=== PATIENT | male | born 2000 | race Caucasian/White ===

== ENCOUNTER 2023-05-11 22:23 | Emergency (ER) | payer OTHER ==
[~2023-05-11] VITALS: Ht 180.3 cm; Wt 83.2 kg
[2023-05-11 22:30] VITALS: TEMP 96.8; O2SAT 96
[2023-05-11] MEDS ORDERED: NS 1,000 ML IV SCH (22:30)
[2023-05-11] MEDS ORDERED: ONDANSETRON 4MG 2ML VIAL IV ONE (22:30)
[2023-05-11 22:53] VITALS: BP 112/73
[2023-05-11 23:03] LABS: BASO % 0.2 % (0.0-1.0); HEMATOCRIT 42.8 % (42.0-52.0); HEMOGLOBIN 14.1 g/dl (13.5-17.5); LYMPH # 1.2 10^3/uL (1.5-5.0); LYMPH % 9.6 % (24.0-44.0); MEAN CORPUSCULAR HEMOGLOBIN 28.9 pg (27.0-33.0); MEAN CORPUSCULAR HGB CONC 32.9 g/dl (32.0-36.5); MEAN CORPUSCULAR VOLUME 87.7 fl (80.0-96.0); MONO # 0.4 10^3/uL (0.0-0.8); MONO % 3.3 % (2.0-8.0); NEUTROPHILS # 10.9 10^3/uL (1.5-8.5); NEUTROPHILS % 86.4 % (36.0-66.0); PLATELET COUNT, AUTOMATED 192 10^3/uL (150-450); RED BLOOD COUNT 4.88 10^6/uL (4.30-6.10); WHITE BLOOD COUNT 12.6 10^3/uL (4.0-10.0)
[2023-05-11 23:29] LABS: ETHYL ALCOHOL (ETHANOL) 0.262 % (0.000-0.010)
[2023-05-11 23:31] LABS: ACETAMINOPHEN LEVEL < 2.0 UG/ML (10.0-20.0); ALBUMIN 4.3 G/DL (3.2-5.2); ALKALINE PHOSPHATASE 88 U/L (46-116); ALT/SGPT 82 U/L (7.0-40); AST/SGOT 96 U/L (<34); BILIRUBIN,DIRECT < 0.1 MG/DL (<0.4); BILIRUBIN,TOTAL 0.3 MG/DL (0.3-1.2); BLOOD UREA NITROGEN 21 MG/DL (9-23); CALCIUM LEVEL 8.4 MG/DL (8.5-10.1); CARBON DIOXIDE LEVEL 27 MMOL/L (20-31); CHLORIDE LEVEL 105 MMOL/L (98-107); GLOMERULAR FILTRATION RATE > 60.0 (>60); GLUCOSE, FASTING 124 MG/DL (60-100); POTASSIUM SERUM 4.6 MMOL/L (3.5-5.1); SALICYLATE LEVEL < 3.0 MG/DL (<30); SODIUM LEVEL 142 MMOL/L (136-145); TOTAL PROTEIN 7.4 G/DL (5.7-8.2)
[2023-05-11 23:33] LABS: RSV AMPLIFICATION NEGATIVE (NEGATIVE); THYROID STIMULATING HORMONE 2.322 uIU/ML (0.55-4.78)
[2023-05-11 23:46] LABS: CPK CREATINE PHOSPHOKINASE 793 U/L (46-171)
== END 2023-05-12 05:25 | disposition home or self-care (01) ==
LOC: M ED 22:23 → EDBD 22:23 → M ED 05-12 05:25
DX: F10.129 Alcohol abuse with intoxication, unspecified (principal); S00.03XA Contusion of scalp, initial encounter
CPT/HCPCS: 70450; 72125; 80048; 80076; 80143; 82077; 82550; 84443; 85025; 87631; 93005; 93041; 94760; 96374; 99285; J2405

== ENCOUNTER 2024-07-05 11:00 | Emergency (ER) | payer OTHER ==
[~2024-07-05] VITALS: Ht 180.3 cm; Wt 90.0 kg
[2024-07-05 11:31] LABS: HEMATOCRIT 45.8 % (42.0-52.0); HEMOGLOBIN 15.7 g/dl (13.5-17.5); MEAN CORPUSCULAR HEMOGLOBIN 29.6 pg (27.0-33.0); MEAN CORPUSCULAR HGB CONC 34.3 g/dl (32.0-36.5); MEAN CORPUSCULAR VOLUME 86.3 fl (80.0-96.0); PLATELET COUNT, AUTOMATED 214 10^3/uL (150-450); RED BLOOD COUNT 5.31 10^6/uL (4.30-6.10); WHITE BLOOD COUNT 5.7 10^3/uL (4.0-10.0)
[2024-07-05] MEDS ORDERED: LORazepam 2 MG TAB PO PRN (11:55)
[2024-07-05 12:00] LABS: ETHYL ALCOHOL (ETHANOL) 0.221 % (0.000-0.010)
[2024-07-05 12:01] LABS: AMPHETAMINES LEVEL URINE NEGATIVE (NEGATIVE); BARBITURATES URINE NEGATIVE (NEGATIVE); BENZODIAZEPINES URINE NEGATIVE (NEGATIVE); CANNABINOIDS URINE NEGATIVE (NEGATIVE); COCAINE METABOLITE URINE NEGATIVE (NEGATIVE); METHADONE URINE NEGATIVE (NEGATIVE); OPIATES URINE NEGATIVE (NEGATIVE); PHENCYCLIDINE URINE NEGATIVE (NEGATIVE); SALICYLATE LEVEL < 3.0 MG/DL (<30)
[2024-07-05 12:02] LABS: ALBUMIN 4.4 G/DL (3.2-5.2); ALKALINE PHOSPHATASE 111 U/L (46-116); ALT/SGPT 102 U/L (7.0-40); AST/SGOT 45 U/L (<34); BILIRUBIN,DIRECT 0.1 MG/DL (<0.4); BILIRUBIN,TOTAL 0.3 MG/DL (0.3-1.2); BLOOD UREA NITROGEN 17 MG/DL (9-23); CALCIUM LEVEL 9.3 MG/DL (8.5-10.1); CARBON DIOXIDE LEVEL 27 MMOL/L (20-31); CHLORIDE LEVEL 106 MMOL/L (98-107); GLOMERULAR FILTRATION RATE > 60.0 (>60); GLUCOSE, FASTING 90 MG/DL (60-100); POTASSIUM SERUM 4.1 MMOL/L (3.5-5.1); SODIUM LEVEL 137 MMOL/L (136-145); TOTAL PROTEIN 7.7 G/DL (5.7-8.2)
[2024-07-05 12:04] LABS: THYROID STIMULATING HORMONE 1.129 uIU/ML (0.55-4.78)
[2024-07-05] MEDS: THIAMINE 100 MG TAB PO SCH (12:09)
[2024-07-05] MEDS: FOLIC ACID 1MG TAB PO SCH (12:10)
[2024-07-05] MEDS: MULTIVITAMINS/MINERALS THERAP 1 TAB PO SCH (12:10)
[2024-07-05] MEDS ORDERED: HOME MED LIST COMPLETE! XX SCH (18:10)
[2024-07-05 18:59] VITALS: BP 136/86; TEMP 98.4; O2SAT 98
== END 2024-07-05 19:52 | disposition home or self-care (01) ==
LOC: M ED 11:00
DX: F10.129 Alcohol abuse with intoxication, unspecified (principal); F43.21 Adjustment disorder with depressed mood

== ENCOUNTER 2024-12-19 20:39 | Inpatient (IN) | payer OTHER ==
[~2024-12-19] VITALS: Ht 175.3 cm; Wt 94.5 kg
[2024-12-19 21:15] LABS: HEMATOCRIT 42.1 % (42.0-52.0); HEMOGLOBIN 14.6 g/dl (13.5-17.5); MEAN CORPUSCULAR HEMOGLOBIN 29.3 pg (27.0-33.0); MEAN CORPUSCULAR HGB CONC 34.7 g/dl (32.0-36.5); MEAN CORPUSCULAR VOLUME 84.4 fl (80.0-96.0); PLATELET COUNT, AUTOMATED 195 10^3/uL (150-450); RED BLOOD COUNT 4.99 10^6/uL (4.30-6.10); WHITE BLOOD COUNT 8.4 10^3/uL (4.0-10.0)
[2024-12-19 21:44] LABS: AMPHETAMINES LEVEL URINE NEGATIVE (NEGATIVE); BARBITURATES URINE NEGATIVE (NEGATIVE); BENZODIAZEPINES URINE NEGATIVE (NEGATIVE); COCAINE METABOLITE URINE NEGATIVE (NEGATIVE); METHADONE URINE NEGATIVE (NEGATIVE); OPIATES URINE NEGATIVE (NEGATIVE); PHENCYCLIDINE URINE NEGATIVE (NEGATIVE)
[2024-12-19 21:45] LABS: CANNABINOIDS URINE POSITIVE (NEGATIVE)
[2024-12-19 21:46] LABS: ETHYL ALCOHOL (ETHANOL) < 0.003 % (0.000-0.010)
[2024-12-19 21:48] LABS: SALICYLATE LEVEL < 3.0 MG/DL (<30)
[2024-12-19 21:50] LABS: THYROID STIMULATING HORMONE 1.415 uIU/ML (0.55-4.78)
[2024-12-19 22:12] LABS: ALBUMIN 4.4 G/DL (3.2-5.2); ALKALINE PHOSPHATASE 81 U/L (40-129); ALT/SGPT 45 U/L (7.0-40); AST/SGOT 29 U/L (<34); BILIRUBIN,DIRECT 0.2 MG/DL (<0.4); BILIRUBIN,TOTAL 0.6 MG/DL (0.3-1.2); BLOOD UREA NITROGEN 21 MG/DL (9-23); CALCIUM LEVEL 9.3 MG/DL (8.5-10.1); CARBON DIOXIDE LEVEL 25 MMOL/L (20-31); CHLORIDE LEVEL 104 MMOL/L (98-107); CREATININE FOR GFR 0.93 MG/DL (0.70-1.30); GLOMERULAR FILTRATION RATE > 60.0 (>60); GLUCOSE, FASTING 81 MG/DL (60-100); POTASSIUM SERUM 3.9 MMOL/L (3.5-5.1); SODIUM LEVEL 142 MMOL/L (136-145); TOTAL PROTEIN 7.3 G/DL (5.7-8.2)
[2024-12-19] MEDS ORDERED: MED REC IN PROGRESS XX SCH (22:45)
[2024-12-20] MEDS ORDERED: HOME MED LIST COMPLETE! XX SCH (07:55)
[2024-12-20] MEDS ORDERED: traZODone 50 MG TAB PO PRN (20:15)
[2024-12-20] MEDS ORDERED: diphenhydrAMINE 25MG CAP PO PRN (20:15)
[2024-12-20] MEDS ORDERED: MAALOX 30 ML SUSP *UDC PO PRN (20:15)
[2024-12-20] MEDS ORDERED: MOM 30ML SUSPENSION UDC PO PRN (20:15)
[2024-12-20] MEDS ORDERED: IBUPROFEN 400MG TAB PO PRN (20:15)
[2024-12-20] MEDS ORDERED: ACETAMINOPHEN 325 MG TAB PO PRN (20:15)
[2024-12-21 06:45] VITALS: BP 103/63; TEMP 97.6; O2SAT 100
[2024-12-21] MEDS: buPROPion **XL** TABLET 150MG (WELLBUTRIN XL) PO SCH (14:32)
[2024-12-21 17:33] VITALS: BP 124/62; TEMP 97; O2SAT 99
[2024-12-21 19:27] LABS: C REACTIVE PROTEIN QUANTITATIV 0.62 MG/DL (<1.0)
[2024-12-21 19:36] LABS: PROCALCITONIN 0.09 ng/ml
[2024-12-22 06:44] VITALS: BP 119/74; TEMP 98; O2SAT 96
[2024-12-22 15:46] VITALS: BP 140/85; TEMP 98.4; O2SAT 100
[2024-12-23 06:34] VITALS: BP 125/86; TEMP 98.2; O2SAT 100
[2024-12-23 15:55] VITALS: BP 120/69; TEMP 98.3; O2SAT 99
[2024-12-24 06:47] VITALS: BP 126/84; TEMP 98.8; O2SAT 100
[2024-12-24] MEDS ORDERED: BUPR150T12 PO (10:49)
[2024-12-24 21:02] LABS: ANA SCREEN, IFA NEGATIVE (NEGATIVE)
== END 2024-12-24 11:52 | disposition home or self-care (01) | DRG 885 ==
LOC: M ED 20:39 → M ED INP 12-20 20:13 → M PSY 12-20 21:08
PROVIDERS: ADMIT Psychiatry & Neurology Neurology; ATTEND Psychiatry & Neurology Neurology
DX: F33.1 Major depressive disorder, recurrent, moderate (principal); R45.851 Suicidal ideations; F41.9 Anxiety disorder, unspecified; F43.10 Post-traumatic stress disorder, unspecified; F12.90 Cannabis use, unspecified, uncomplicated; F17.210 Nicotine dependence, cigarettes, uncomplicated

== ENCOUNTER 2025-01-02 21:09 | Inpatient (IN) | payer OTHER ==
[~2025-01-02] VITALS: Ht 177.8 cm; Wt 92.3 kg
[~2025-01-02 21:09] MED LIST: BUPR150T12 PO
[2025-01-02 21:43] LABS: HEMATOCRIT 44.7 % (42.0-52.0); HEMOGLOBIN 15.2 g/dl (13.5-17.5); MEAN CORPUSCULAR HEMOGLOBIN 28.8 pg (27.0-33.0); MEAN CORPUSCULAR VOLUME 84.8 fl (80.0-96.0); PLATELET COUNT, AUTOMATED 190 10^3/uL (150-450); RED BLOOD COUNT 5.27 10^6/uL (4.30-6.10)
[2025-01-02 22:07] LABS: ETHYL ALCOHOL (ETHANOL) < 0.003 % (0.000-0.010)
[2025-01-02 22:09] LABS: ALBUMIN 4.6 G/DL (3.2-5.2); ALKALINE PHOSPHATASE 79 U/L (40-129); ALT/SGPT 73 U/L (7.0-40); AST/SGOT 32 U/L (<34); BILIRUBIN,DIRECT 0.2 MG/DL (<0.4); BILIRUBIN,TOTAL 0.6 MG/DL (0.3-1.2); BLOOD UREA NITROGEN 23 MG/DL (9-23); CALCIUM LEVEL 9.3 MG/DL (8.5-10.1); CARBON DIOXIDE LEVEL 23 MMOL/L (20-31); CHLORIDE LEVEL 106 MMOL/L (98-107); GLOMERULAR FILTRATION RATE > 60.0 (>60); GLUCOSE, FASTING 72 MG/DL (60-100); POTASSIUM SERUM 4.2 MMOL/L (3.5-5.1); SALICYLATE LEVEL < 3.0 MG/DL (<30); SODIUM LEVEL 144 MMOL/L (136-145); TOTAL PROTEIN 7.5 G/DL (5.7-8.2)
[2025-01-02 22:12] LABS: THYROID STIMULATING HORMONE 0.933 uIU/ML (0.55-4.78)
[2025-01-03 04:50] LABS: AMPHETAMINES LEVEL URINE NEGATIVE (NEGATIVE); BARBITURATES URINE NEGATIVE (NEGATIVE); BENZODIAZEPINES URINE NEGATIVE (NEGATIVE); CANNABINOIDS URINE NEGATIVE (NEGATIVE); COCAINE METABOLITE URINE NEGATIVE (NEGATIVE); METHADONE URINE NEGATIVE (NEGATIVE); OPIATES URINE NEGATIVE (NEGATIVE); PHENCYCLIDINE URINE NEGATIVE (NEGATIVE)
[2025-01-03 05:16] LABS: KETONE, URINE AUTO RFX 2+ mg/dL (NEGATIVE); LEUKOCYTE ESTERASE UR AUTO RFX NEGATIVE (NEGATIVE); MUCUS, URINE RFX SMALL (NEGATIVE); NITRITE, URINE AUTO RFX NEGATIVE (NEGATIVE); RBC, URINE AUTO RFX 0 /HPF (0-3); SQUAM EPITHELIAL CELL UR AURFX 0 /HPF (0-6); WBC, URINE AUTO RFX 0 /HPF (0-3)
[2025-01-03] MEDS ORDERED: MED REC IN PROGRESS XX SCH (08:50)
[2025-01-03] MEDS: NICOTINE 14 MG/24 HR TRANSDERMAL TD SCH (09:00)
[2025-01-03] MEDS ORDERED: BUPR-71 PO (13:05)
[2025-01-03] MEDS ORDERED: HOME MED LIST COMPLETE! XX SCH (13:05)
[2025-01-03] MEDS ORDERED: diphenhydrAMINE 25MG CAP PO PRN (13:20)
[2025-01-03] MEDS ORDERED: MAALOX 30 ML SUSP *UDC PO PRN (13:20)
[2025-01-03] MEDS ORDERED: traZODone 50 MG TAB PO PRN (13:20)
[2025-01-03] MEDS ORDERED: OLANZapine 5 MG TAB PO PRN (13:20)
[2025-01-03] MEDS ORDERED: LORazepam 1 MG TAB PO PRN (13:20)
[2025-01-03] MEDS ORDERED: ACETAMINOPHEN 325 MG TAB PO PRN (13:20)
[2025-01-03] MEDS ORDERED: MOM 30ML SUSPENSION UDC PO PRN (13:20)
[2025-01-03] MEDS ORDERED: WELLTAB38 PO (13:21)
[2025-01-03] MEDS: buPROPion **XL** TABLET 150MG (WELLBUTRIN XL) PO SCH (14:14)
[2025-01-03 15:10] VITALS: BP 127/77; TEMP 97; O2SAT 100
[2025-01-04 06:41] VITALS: BP 112/64; TEMP 98; O2SAT 100
[2025-01-04] MEDS: buPROPion **XL** TABLET 150MG (WELLBUTRIN XL) PO SCH (15:33)
[2025-01-04 15:45] VITALS: BP 119/80; TEMP 97.6; O2SAT 100
[2025-01-05 06:55] VITALS: BP 104/65; TEMP 97.4; O2SAT 100
[2025-01-05 15:57] VITALS: BP 120/62; TEMP 97.5; O2SAT 100
[2025-01-06 06:56] VITALS: BP 119/72; TEMP 97.5; O2SAT 98
[2025-01-06 15:15] VITALS: BP 122/70; TEMP 97.8; O2SAT 100
[2025-01-07 06:41] VITALS: BP 113/70; TEMP 97.2; O2SAT 97
[2025-01-07] MEDS ORDERED: ABIL1TAB11 PO (11:59)
== END 2025-01-07 14:10 | disposition home or self-care (01) | DRG 885 ==
LOC: M ED 21:09 → M ED INP 01-03 13:19 → M PSY 01-03 14:21
PROVIDERS: ADMIT Internal Medicine; ATTEND Internal Medicine
DX: F33.1 Major depressive disorder, recurrent, moderate (principal); R45.851 Suicidal ideations; F43.21 Adjustment disorder with depressed mood; F17.210 Nicotine dependence, cigarettes, uncomplicated; F60.89 Other specific personality disorders; F41.9 Anxiety disorder, unspecified; F60.3 Borderline personality disorder; R20.0 Anesthesia of skin; M54.9 Dorsalgia, unspecified; G89.29 Other chronic pain; Z91.51 Personal history of suicidal behavior; Z62.810 Personal history of physical and sexual abuse in childhood; Z79.899 Other long term (current) drug therapy; F43.10 Post-traumatic stress disorder, unspecified

== ENCOUNTER 2025-01-14 17:30 | Inpatient (IN) | payer OTHER ==
[~2025-01-14] VITALS: Ht 180.3 cm; Wt 93.2 kg
[~2025-01-14 17:30] MED LIST changes: +ABIL1TAB11 PO; +BUPR-71 PO; +WELLTAB38 PO
[2025-01-14 18:30] LABS: HEMATOCRIT 45.3 % (42.0-52.0); HEMOGLOBIN 15.4 g/dl (13.5-17.5); MEAN CORPUSCULAR HEMOGLOBIN 29.1 pg (27.0-33.0); MEAN CORPUSCULAR VOLUME 85.5 fl (80.0-96.0); PLATELET COUNT, AUTOMATED 193 10^3/uL (150-450); WHITE BLOOD COUNT 8.7 10^3/uL (4.0-10.0)
[2025-01-14 18:55] LABS: AMPHETAMINES LEVEL URINE NEGATIVE (NEGATIVE); BARBITURATES URINE NEGATIVE (NEGATIVE); BENZODIAZEPINES URINE NEGATIVE (NEGATIVE); COCAINE METABOLITE URINE NEGATIVE (NEGATIVE); METHADONE URINE NEGATIVE (NEGATIVE)
[2025-01-14 18:56] LABS: OPIATES URINE NEGATIVE (NEGATIVE); PHENCYCLIDINE URINE NEGATIVE (NEGATIVE)
[2025-01-14 18:57] LABS: CANNABINOIDS URINE POSITIVE (NEGATIVE)
[2025-01-14] MEDS ORDERED: ABIL1TAB11 PO (19:05)
[2025-01-14] MEDS ORDERED: HOME MED LIST COMPLETE! XX SCH (19:05)
[2025-01-14 19:07] LABS: ETHYL ALCOHOL (ETHANOL) < 0.003 % (0.000-0.010)
[2025-01-14 19:09] LABS: ALBUMIN 4.4 G/DL (3.2-5.2); ALKALINE PHOSPHATASE 79 U/L (40-129); ALT/SGPT 62 U/L (7.0-40); AST/SGOT 24 U/L (<34); BILIRUBIN,DIRECT 0.3 MG/DL (<0.4); BILIRUBIN,TOTAL 0.7 MG/DL (0.3-1.2); BLOOD UREA NITROGEN 14 MG/DL (9-23); CALCIUM LEVEL 9.7 MG/DL (8.5-10.1); CARBON DIOXIDE LEVEL 27 MMOL/L (20-31); CHLORIDE LEVEL 103 MMOL/L (98-107); CREATININE FOR GFR 0.89 MG/DL (0.70-1.30); GLOMERULAR FILTRATION RATE > 60.0 (>60); GLUCOSE, FASTING 81 MG/DL (60-100); POTASSIUM SERUM 4.1 MMOL/L (3.5-5.1); SALICYLATE LEVEL < 3.0 MG/DL (<30); SODIUM LEVEL 140 MMOL/L (136-145); TOTAL PROTEIN 7.5 G/DL (5.7-8.2)
[2025-01-14 19:11] LABS: THYROID STIMULATING HORMONE 0.892 uIU/ML (0.55-4.78)
[2025-01-15] MEDS ORDERED: LORazepam 1 MG TAB PO PRN (12:45)
[2025-01-15] MEDS ORDERED: OLANZapine 5 MG TAB PO PRN (12:45)
[2025-01-15] MEDS ORDERED: ACETAMINOPHEN 325 MG TAB PO PRN (12:45)
[2025-01-15] MEDS ORDERED: MAALOX 30 ML SUSP *UDC PO PRN (12:45)
[2025-01-15] MEDS ORDERED: MOM 30ML SUSPENSION UDC PO PRN (12:45)
[2025-01-15 13:16] VITALS: BP 119/85; TEMP 98.6; O2SAT 100
[2025-01-15] MEDS: NICOTINE 14 MG/24 HR TRANSDERMAL TD SCH (14:43)
[2025-01-15] MEDS: buPROPion **XL** TABLET 150MG (WELLBUTRIN XL) PO SCH (14:43)
[2025-01-15 15:41] VITALS: BP 119/73; TEMP 97.6; O2SAT 99
[2025-01-16 06:35] VITALS: BP 124/69; TEMP 97.6; O2SAT 95
[2025-01-16 15:16] VITALS: BP 128/75; TEMP 97.9; O2SAT 98
[2025-01-16] MEDS: OLANZapine 5 MG TAB PO SCH (20:41)
[2025-01-17 06:27] VITALS: BP 130/77; TEMP 96.8; O2SAT 98
[2025-01-17 16:13] VITALS: BP 126/78; TEMP 97.6; O2SAT 100
[2025-01-17] MEDS: traZODone 50 MG TAB PO PRN (20:11)
[2025-01-17] MEDS: diphenhydrAMINE 25MG CAP PO PRN (20:11)
[2025-01-18 06:30] VITALS: BP 108/60; TEMP 97.9; O2SAT 97
[2025-01-18 16:49] VITALS: BP 130/81; TEMP 97.8; O2SAT 99
[2025-01-19 06:59] VITALS: BP 131/68; TEMP 96.9; O2SAT 99
[2025-01-19 15:49] VITALS: BP 120/70; TEMP 98; O2SAT 100
[2025-01-19] MEDS: BENZTROPINE 0.5 MG TAB PO SCH (20:06)
[2025-01-20 06:43] VITALS: BP 121/67; TEMP 97.8; O2SAT 100
[2025-01-20] MEDS: ARIPiprazole MONOHYDRATE 400 MG INJ (ABILIFY)(FREE PSY INPT ONLY) IM ONE (09:48)
[2025-01-20 15:17] VITALS: BP 113/67; TEMP 97.9; O2SAT 99
[2025-01-21 06:31] VITALS: BP 104/58; TEMP 98; O2SAT 98
[2025-01-21 15:21] VITALS: BP 135/72; TEMP 97.2
[2025-01-22 06:45] VITALS: BP 99/60; TEMP 97; O2SAT 96
[2025-01-22] MEDS ORDERED: BUPR150T12 PO (09:50)
[2025-01-22] MEDS ORDERED: BENZ0.5T2 PO (09:50)
[2025-01-22] MEDS ORDERED: ABIL1TAB11 PO (09:50)
[2025-01-22] MEDS ORDERED: TRAZ-252 PO (09:50)
== END 2025-01-22 11:34 | DRG 885 ==
LOC: M ED 17:30 → M ED INP 01-15 12:42 → M PSY 01-15 13:33
PROVIDERS: ADMIT Internal Medicine; ATTEND Internal Medicine
DX: F33.3 Major depressive disorder, recurrent, severe with psychotic symptoms (principal); R45.851 Suicidal ideations; F41.9 Anxiety disorder, unspecified; F10.10 Alcohol abuse, uncomplicated; M54.9 Dorsalgia, unspecified; F17.200 Nicotine dependence, unspecified, uncomplicated; G89.29 Other chronic pain; Z91.51 Personal history of suicidal behavior; Z71.6 Tobacco abuse counseling; Z79.899 Other long term (current) drug therapy